=== PATIENT | male | born 1995 | race Caucasian/White ===

== ENCOUNTER 2017-02-27 09:17 | Emergency (ER) | payer MEDICAID ==
[~2017-02-27] VITALS: Ht 165.1 cm; Wt 56.9 kg
[2017-02-27 11:08] VITALS: BP 120/80
== END 2017-02-27 11:08 | disposition home or self-care (01) ==
LOC: ED 09:17
DX: S31.811A Laceration without foreign body of right buttock, initial encounter (principal); W18.11XA Fall from or off toilet without subsequent striking against object, initial encounter; Y93.E1 Activity, personal bathing and showering; Y99.8 Other external cause status; Y92.091 Bathroom in other non-institutional residence as the place of occurrence of the external cause
CPT/HCPCS: 90715; J2001

== ENCOUNTER 2018-06-20 21:23 | Emergency (ER) | payer MEDICAID ==
[~2018-06-20] VITALS: Ht 165.1 cm; Wt 59.1 kg
[2018-06-20 21:36] VITALS: Ht 165.1 cm; Wt 59.1 kg
[2018-06-20 22:32] VITALS: BP 124/62
== END 2018-06-20 22:32 | disposition home or self-care (01) ==
LOC: ED 21:23
DX: S05.01XA Injury of conjunctiva and corneal abrasion without foreign body, right eye, initial encounter (principal); H10.9 Unspecified conjunctivitis; X58.XXXA Exposure to other specified factors, initial encounter; Y93.89 Activity, other specified; Y92.89 Other specified places as the place of occurrence of the external cause; Y99.8 Other external cause status

== ENCOUNTER 2020-01-17 17:33 | Emergency (ER) | payer SELFPAY ==
[~2020-01-17] VITALS: Ht 165.1 cm; Wt 60.8 kg
[2020-01-17 17:38] VITALS: Ht 165.1 cm; Wt 60.8 kg
[2020-01-17 19:24] VITALS: BP 128/76
== END 2020-01-17 18:50 | disposition home or self-care (01) ==
LOC: ED 17:33
DX: S60.512A Abrasion of left hand, initial encounter (principal); W29.8XXA Contact with other powered hand tools and household machinery, initial encounter; Y93.89 Activity, other specified; Y92.89 Other specified places as the place of occurrence of the external cause; Y99.8 Other external cause status
CPT/HCPCS: 90715